=== PATIENT | male | born 2000 | race Caucasian/White ===

== ENCOUNTER 2020-05-03 01:26 | Emergency (ER) | payer SELFPAY ==
[~2020-05-03] VITALS: Ht 185.4 cm; Wt 64.0 kg
[2020-05-03 01:39] VITALS: BP 138/98
== END 2020-05-03 02:15 | disposition home or self-care (01) ==
LOC: ED 02:03
DX: F41.1 Generalized anxiety disorder (principal); Z00.00 Encounter for general adult medical examination without abnormal findings
CPT/HCPCS: 99283